=== PATIENT | male | born 1950 | race Caucasian/White ===

== ENCOUNTER 2019-02-01 08:02 | Day surgery (SDC) | payer MEDICARE ==
[~2019-02-01] VITALS: Ht 172.7 cm; Wt 68.1 kg
[~2019-02-01 08:02] MED LIST: LIDOcaine 1% 30ml preserv. free vial SQ STA
[2019-02-01 08:30] VITALS: BP 117/85
[2019-02-01 08:45] VITALS: BP 110/82
[2019-02-01 09:00] VITALS: BP 118/88
[2019-02-01 09:15] VITALS: BP 108/70
[2019-02-01] MEDS ORDERED: oxyCODONE IR 5mg (immed. release) tablet PO ONE ×2 (09:20→09:25)
[2019-02-01 09:33] VITALS: BP 136/93
[2019-02-01] MEDS ORDERED: LORA1TAB PO (10:45)
[2019-02-01] MEDS ORDERED: CHOL200012 PO (10:45)
[2019-02-01] MEDS ORDERED: ONDA8TAB13 PO (10:45)
[2019-02-01] MEDS ORDERED: ALBU8.5H8 IH (10:45)
[2019-02-01] MEDS ORDERED: VENL-191 PO (10:45)
[2019-02-01] MEDS ORDERED: Potassium PO (10:45)
[2019-02-01] MEDS ORDERED: FAMO20TA8 PO (10:45)
[2019-02-01] MEDS ORDERED: CYCL-1 PO (10:45)
[2019-02-01] MEDS ORDERED: PROC10TA10 PO (10:45)
[2019-02-01] MEDS ORDERED: ACET-812 PO (10:45)
[2019-02-01] MEDS ORDERED: METO25TA6 PO (10:45)
== END 2019-02-01 10:05 | disposition home or self-care (01) ==
LOC: SSTAY O 08:02
PROVIDERS: ATTEND Radiology Vascular & Interventional Radiology
DX: J90 Pleural effusion, not elsewhere classified (principal); Z88.8 Allergy status to other drugs, medicaments and biological substances; Z98.890 Other specified postprocedural states
CPT/HCPCS: 32555; 71045; J3490; C1729

== ENCOUNTER 2019-03-15 11:35 | Day surgery (SDC) | payer MEDICARE, OTHER ==
[~2019-03-15] VITALS: Ht 172.7 cm; Wt 70.4 kg
[~2019-03-15 11:35] MED LIST changes: +ACET-812 PO; +ALBU8.5H8 IH; +CHOL200012 PO; +CYCL-1 PO; +FAMO20TA8 PO; -LIDOcaine 1% 30ml preserv. free vial SQ STA; +LORA1TAB PO; +METO25TA6 PO; +ONDA8TAB13 PO; +PROC10TA10 PO; +Potassium PO; +VENL-191 PO
[2019-03-15] MEDS ORDERED: LIDOcaine 1% 30ml preserv. free vial SQ STA (11:52)
[2019-03-15] MEDS ORDERED: CYA500T PO (12:26)
[2019-03-15] MEDS ORDERED: MULT1CAP44 PO (12:26)
[2019-03-15] MEDS ORDERED: PANT-47 PO (12:26)
[2019-03-15] MEDS ORDERED: FOLI1TAB16 PO (12:26)
[2019-03-15 12:33] VITALS: BP 118/85
[2019-03-15 13:25] VITALS: BP 131/83
[2019-03-15 13:35] VITALS: BP 145/87
--- NOTE | 2019-03-15 13:40 | NUR ---
PT HAD 800ML FLUID DRAINED FROM RT POSTERIOR THORACENTESIS
[2019-03-15 13:50] VITALS: BP 145/88
[2019-03-15 14:05] VITALS: BP 147/89
[2019-03-15 14:20] VITALS: BP 140/92
== END 2019-03-15 14:30 | disposition home or self-care (01) ==
LOC: SSTAY O 11:35
PROVIDERS: ATTEND Radiology Diagnostic Radiology
DX: C34.92 Malignant neoplasm of unspecified part of left bronchus or lung (principal); J90 Pleural effusion, not elsewhere classified; Z88.8 Allergy status to other drugs, medicaments and biological substances; Z79.899 Other long term (current) drug therapy
CPT/HCPCS: 32555; 71045; C1729; J3490